=== PATIENT | male | born 1980 | race African-American/Black ===

== ENCOUNTER 2018-01-29 09:20 | Inpatient (IN) | payer BC ==
[2018-01-29] MEDS: SOD CHLORIDE 0.9% 1,000 ML IV (10:30)
[2018-01-29] MEDS: KETOROLAC 30 MG INJ IV (10:30)
[2018-01-29 11:09] LABS: ADD MAN DIFF? NO
[2018-01-29 11:12] LABS: BASOPHILS % 0.2 % (0.0-2.0); EOSINOPHILS % 0.3 % (0.0-7.0); HEMATOCRIT 36.1 % (42.0-52.0); HEMOGLOBIN 12.2 g/dl (14.0-18.0); LYMPHOCYTES # 1.4 10^3/ul (0.8-2.9); LYMPHOCYTES % 23.2 % (15.0-51.0); MEAN CORPUSCULAR HEMOGLOBIN 31.9 pg (29.0-33.0); MEAN CORPUSCULAR HGB CONC 33.8 g/dl (32.0-37.0); MEAN CORPUSCULAR VOLUME 94.3 fl (82.0-101.0); MEAN PLATELET VOLUME 11.4 fl (7.4-10.4); MONOCYTE # 0.5 10^3/ul (0.3-0.9); MONOCYTES % 8.9 % (0.0-11.0); NEUTROPHIL # 3.9 10^3/ul (1.6-7.5); NEUTROPHILS % 67.2 % (39.0-77.0); PLATELET COUNT 102 10^3/UL (140-415); POSITIVE DIFF @See below; RED BLOOD COUNT 3.83 10^6/ul (4.70-6.10); RED CELL DISTRIBUTION WIDTH 15.3 % (11.5-14.5)
[2018-01-29 11:12] LABS: WHITE BLOOD COUNT 5.8 10^3/ul (4.8-10.8)
[2018-01-29 11:20] LABS: ADD UMIC YES; UR AMORPHOUS CRYSTAL MODERATE /HPF (NONE SEEN); UR ASCORBIC ACID NEGATIVE (NEGATIVE); UR BILIRUBIN (Dip) 1+ mg/dL (NEGATIVE); UR BLOOD (Dip) NEGATIVE (NEGATIVE); UR CLARITY TURBID (CLEAR); UR COLOR AMBER (YELLOW); UR GLUCOSE (Dip) 1+ mg/dL (NEGATIVE); UR KETONES (Dip) 1+ mg/dL (NEGATIVE); UR LEUKOCYTE ESTERASE (Dip) NEGATIVE Leu/ul (NEGATIVE); UR MUCUS FEW /HPF (NONE SEEN); UR NITRITE (Dip) NEGATIVE (NEGATIVE); UR RBC 14 /HPF (0-5); UR SPECIFIC GRAVITY (Dip) 1.031 (1.003-1.030); UR TOTAL PROTEIN (Dip) 2+ mg/dl (NEGATIVE); UR UROBILINOGEN (Dip) 2+ mg/dL (NEGATIVE); UR WBC 0 /HPF (0-5)
[2018-01-29 11:47] LABS: ALANINE AMINOTRANSFERASE 37 IU/L (13-69); ALBUMIN 4.2 g/dl (3.3-4.9); ALBUMIN/GLOBULIN RATIO 0.82; ALKALINE PHOSPHATASE 115 IU/L (42-121); ANION GAP 22 (8-16); ASPARTATE AMINO TRANSFERASE 140 IU/L (15-46); BILIRUBIN,INDIRECT 2.7 mg/dl (0-1.1); BILIRUBIN,TOTAL 3.4 mg/dl (0.2-1.3); BLOOD UREA NITROGEN 2 mg/dl (7-20); CALCIUM 8.9 mg/dl (8.4-10.2); CARBON DIOXIDE 26 mmol/L (21-31); CHLORIDE 102 mmol/L (97-110); CREATININE 0.65 mg/dl (0.61-1.24); GLUCOSE 96 mg/dl (70-220); LIPASE 190 U/L (23-300); POTASSIUM 3.5 mmol/L (3.5-5.1); SODIUM 146 mmol/L (135-144); TOTAL PROTEIN 9.3 g/dl (6.1-8.1)
[2018-01-29] MEDS: IOHEXOL 300MG/ML 150 ML BTL (12:20)
[2018-01-29] MEDS: SOD CHLORIDE 0.9% 100 ML (12:20)
[2018-01-29 13:22] LABS: INR 1.57; PROTIME 19.1 Sec (11.9-14.9); PT RATIO 1.5
[2018-01-29] MEDS: morphine 4 MG/ML VIAL IV ×2 (13:36→15:49)
[2018-01-29 16:35] LABS: FLD CLARITY CLEAR; FLD COLOR YELLOW
[2018-01-29 16:35] LABS: FLD TYPE PARACENTHESIS
[2018-01-29 16:36] LABS: FLD RBC 1000 /uL; FLD WBC 110 /cmm
[2018-01-29 17:17] LABS: FLUID LD 326 U/L; FLUID TOTAL PROTEIN 3.7 g/dl
[2018-01-29] MEDS ORDERED: DOCUSATE SODIUM 100 MG CAP PO (18:00)
[2018-01-29] MEDS ORDERED: ONDANSETRON 4 MG INJ IV (18:00)
[2018-01-29] MEDS ORDERED: ACETAMINOPHEN 325 MG TAB PO (18:00)
[2018-01-29] MEDS ORDERED: NACL 0.9% 3 ML SYG IV (18:00)
[2018-01-29] MEDS: ALBUMIN HUMAN 25% 100 ML INJ IV (18:34)
[2018-01-29] MEDS: THIAMINE 100 MG TAB PO (18:34)
[2018-01-29 18:43] LABS: ALPHA FETOPROTEIN 3.69 IU/L (0.00-7.21)
[2018-01-29] MEDS: IBUPROFEN 600 MG TAB PO (22:33)
[2018-01-29] MEDS: HEPARIN 5,000 UNIT/0.5 ML VIAL SC (22:34)
[2018-01-29] MEDS: morphine 2 MG INJ IV (23:32)
[2018-01-30 00:23] LABS: CREATININE,URINE RANDOM > 605.40 mg/dl (20-370)
[2018-01-30] MEDS: morphine 2 MG INJ IV (04:08)
[2018-01-30 05:07] LABS: ADD MAN DIFF? NO
[2018-01-30 05:13] LABS: ABNORMAL IP MESSAGE 1; BASOPHILS % 0.2 % (0.0-2.0); EOSINOPHILS % 0.8 % (0.0-7.0); HEMATOCRIT 32.4 % (42.0-52.0); HEMOGLOBIN 10.6 g/dl (14.0-18.0); LYMPHOCYTES # 1.2 10^3/ul (0.8-2.9); LYMPHOCYTES % 24.7 % (15.0-51.0); MEAN CORPUSCULAR HEMOGLOBIN 31.2 pg (29.0-33.0); MEAN CORPUSCULAR HGB CONC 32.7 g/dl (32.0-37.0); MEAN CORPUSCULAR VOLUME 95.3 fl (82.0-101.0); MEAN PLATELET VOLUME 11.3 fl (7.4-10.4); MONOCYTE # 0.4 10^3/ul (0.3-0.9); MONOCYTES % 8.4 % (0.0-11.0); NEUTROPHIL # 3.2 10^3/ul (1.6-7.5); NEUTROPHILS % 65.5 % (39.0-77.0); PLATELET COUNT 68 10^3/UL (140-415); POSITIVE DIFF @See below; RED CELL DISTRIBUTION WIDTH 15.1 % (11.5-14.5)
[2018-01-30 05:13] LABS: WHITE BLOOD COUNT 4.9 10^3/ul (4.8-10.8)
[2018-01-30 05:37] LABS: ALANINE AMINOTRANSFERASE 37 IU/L (13-69); ALBUMIN 3.7 g/dl (3.3-4.9); ALBUMIN/GLOBULIN RATIO 0.82; ALKALINE PHOSPHATASE 104 IU/L (42-121); ANION GAP 15 (8-16); ASPARTATE AMINO TRANSFERASE 109 IU/L (15-46); BILIRUBIN,INDIRECT 2.3 mg/dl (0-1.1); BILIRUBIN,TOTAL 3.1 mg/dl (0.2-1.3); BLOOD UREA NITROGEN 3 mg/dl (7-20); CALCIUM 8.6 mg/dl (8.4-10.2); CARBON DIOXIDE 27 mmol/L (21-31); CHLORIDE 102 mmol/L (97-110); CREATININE 0.59 mg/dl (0.61-1.24); GLUCOSE 91 mg/dl (70-220); MAGNESIUM 1.5 mg/dl (1.7-2.5); PHOSPHORUS 3.4 mg/dl (2.5-4.9); SODIUM 141 mmol/L (135-144); TOTAL PROTEIN 8.2 g/dl (6.1-8.1)
[2018-01-30 06:01] LABS: HEPATITIS B SURFACE ANTIGEN NEGATIVE (NEGATIVE)
[2018-01-30 06:14] LABS: HIV 1&2 ANTIBODY NEGATIVE (NEGATIVE)
[2018-01-30 06:17] LABS: HEPATITIS B SURFACE ANTIBODY NEGATIVE (NEGATIVE)
[2018-01-30 06:19] LABS: HEPATITIS B CORE ANTIBODY NEGATIVE (NEGATIVE); HEPATITIS C VIRAL ANTIBODY NEGATIVE (NEGATIVE)
[2018-01-30] MEDS: THIAMINE 100 MG TAB PO (08:56)
[2018-01-30] MEDS: MULTIVITAMINS THERAPEUTIC TAB PO (08:56)
[2018-01-30] MEDS: FOLIC ACID 1 MG TAB PO (08:56)
[2018-01-30] MEDS: HEPARIN 5,000 UNIT/0.5 ML VIAL SC ×2 (08:57→20:36)
[2018-01-30] MEDS: POTASSIUM CHLORIDE (SR) 20 MEQ TAB PO (09:57)
[2018-01-30] MEDS: MAGNESIUM SULFATE 3 GM in DEXTROSE 5% 100 ML IVPB (12:09)
[2018-01-30] MEDS: SPIRONOLACTONE 25 MG TAB PO (14:55)
[2018-01-30] MEDS: FUROSEMIDE 40 MG TAB PO (14:56)
[2018-01-30 16:26] LABS: PATH REVIEW CH
[2018-01-31] MEDS: traZODone 50 MG TAB PO (01:00)
[2018-01-31] MEDS: morphine LIQ (10 MG/5 ML) CUP PO (07:05)
[2018-01-31] MEDS: SPIRONOLACTONE 25 MG TAB PO ×2 (09:07→11:03)
[2018-01-31] MEDS: THIAMINE 100 MG TAB PO (09:08)
[2018-01-31] MEDS: FOLIC ACID 1 MG TAB PO (09:08)
[2018-01-31] MEDS: FUROSEMIDE 40 MG TAB PO (09:08)
[2018-01-31] MEDS: MULTIVITAMINS THERAPEUTIC TAB PO (09:08)
[2018-01-31] MEDS: HEPARIN 5,000 UNIT/0.5 ML VIAL SC (09:17)
[2018-01-31 10:45] LABS: ALANINE AMINOTRANSFERASE 33 IU/L (13-69); ALBUMIN 3.2 g/dl (3.3-4.9); ALBUMIN/GLOBULIN RATIO 0.82; ALKALINE PHOSPHATASE 84 IU/L (42-121); ANION GAP 14 (8-16); ASPARTATE AMINO TRANSFERASE 108 IU/L (15-46); BILIRUBIN,INDIRECT 1.6 mg/dl (0-1.1); BILIRUBIN,TOTAL 2.2 mg/dl (0.2-1.3); BLOOD UREA NITROGEN 2 mg/dl (7-20); CALCIUM 8.5 mg/dl (8.4-10.2); CARBON DIOXIDE 29 mmol/L (21-31); CHLORIDE 103 mmol/L (97-110); CREATININE 0.58 mg/dl (0.61-1.24); GLUCOSE 114 mg/dl (70-220); POTASSIUM 3.2 mmol/L (3.5-5.1); SODIUM 143 mmol/L (135-144); TOTAL PROTEIN 7.1 g/dl (6.1-8.1)
[2018-01-31] MEDS: NADOLOL 40 MG TAB PO (11:05)
[2018-01-31] MEDS: POTASSIUM CHLORIDE (SR) 20 MEQ TAB PO (13:21)
[2018-02-01] MEDS ORDERED: SPIRONOLACTONE 25 MG TAB PO (09:00)
== END 2018-01-31 16:00 | disposition home or self-care (01) | DRG 948 ==
LOC: FTE 09:20 → MS1 17:54
PROVIDERS: Internal Medicine
PROC: 0W9G3ZZ Drainage of Peritoneal Cavity, Percutaneous Approach (ICD-10-PCS; principal; 2018-01-29)
DX: R18.8 Other ascites (principal); C22.0 Liver cell carcinoma; C79.9 Secondary malignant neoplasm of unspecified site; K76.6 Portal hypertension; Z85.71 Personal history of Hodgkin lymphoma; R16.0 Hepatomegaly, not elsewhere classified; K74.60 Unspecified cirrhosis of liver; R16.1 Splenomegaly, not elsewhere classified
CPT/HCPCS: 36415; 74177; 74183; 80053; 81001; 81003; 82042; 82105; 83615; 83690; 83735; 84100; 84155; 84157; 85025; 85610; 86703; 86704; 86706; 86708; 86709; 86803; 87070; 87102; 87116; 87340; 88104; 88305; 89051; 93306; 96374; 96375; 96376; 99285-25

== ENCOUNTER 2018-06-26 08:19 | Emergency (ER) | payer BC ==
[2018-06-26] MEDS: ONDANSETRON 4 MG INJ IV (09:21)
[2018-06-26] MEDS: KETOROLAC 15 MG INJ IV (09:21)
[2018-06-26] MEDS: SOD CHLORIDE 0.9% 500 ML IV (09:22)
[2018-06-26 09:30] LABS: ADD MAN DIFF? NO
[2018-06-26 09:46] LABS: WHITE BLOOD COUNT 6.9 10^3/ul (4.8-10.8)
[2018-06-26 09:46] LABS: BASOPHILS % 0.1 % (0.0-2.0); EOSINOPHILS % 0.3 % (0.0-7.0); HEMATOCRIT 37.2 % (42.0-52.0); HEMOGLOBIN 11.7 g/dl (14.0-18.0); LYMPHOCYTES # 0.8 10^3/ul (0.8-2.9); LYMPHOCYTES % 11.4 % (15.0-51.0); MEAN CORPUSCULAR HEMOGLOBIN 29.3 pg (29.0-33.0); MEAN CORPUSCULAR HGB CONC 31.5 g/dl (32.0-37.0); MEAN PLATELET VOLUME 11.1 fl (7.4-10.4); MONOCYTE # 0.4 10^3/ul (0.3-0.9); MONOCYTES % 5.5 % (0.0-11.0); NEUTROPHIL # 5.6 10^3/ul (1.6-7.5); NEUTROPHILS % 82.4 % (39.0-77.0); PLATELET COUNT 156 10^3/UL (140-415)
[2018-06-26 09:54] LABS: INR 1.49; PROTIME 18.3 Sec (11.9-14.9); PT RATIO 1.4
[2018-06-26 09:56] LABS: PARTIAL THROMBOPLASTIN TIME 31.5 Sec (25.0-35.0)
[2018-06-26] MEDS: LIDOCAINE 1% (MPF) 5 ML VIAL (10:23)
[2018-06-26 11:01] LABS: ANION GAP 17 (8-16); BLOOD UREA NITROGEN 3 mg/dl (7-20); CARBON DIOXIDE 28 mmol/L (21-31); CHLORIDE 105 mmol/L (97-110); CREATININE 0.78 mg/dl (0.61-1.24); GLUCOSE 132 mg/dl (70-220); POTASSIUM 4.1 mmol/L (3.5-5.1); SODIUM 146 mmol/L (135-144)
[2018-06-26 11:03] LABS: AMMONIA 15 umol/l (9-30)
[2018-06-26 11:10] LABS: ALANINE AMINOTRANSFERASE 22 IU/L (13-69); ALBUMIN 3.7 g/dl (3.3-4.9); ALBUMIN/GLOBULIN RATIO 0.78; ALKALINE PHOSPHATASE 133 IU/L (42-121); ASPARTATE AMINO TRANSFERASE 91 IU/L (15-46); BILIRUBIN,INDIRECT 1.6 mg/dl (0-1.1); BILIRUBIN,TOTAL 1.6 mg/dl (0.2-1.3); CALCIUM 8.1 mg/dl (8.4-10.2); LIPASE 29 U/L (23-300); TOTAL PROTEIN 8.4 g/dl (6.1-8.1)
[2018-06-26 11:13] LABS: B-TYPE NATRIURETIC PEPTIDE 14 PG/ML (0-125)
[2018-06-26 11:13] LABS: TROPONIN-I < 0.012 ng/ml (0.000-0.120)
== END 2018-06-26 14:30 | disposition home or self-care (01) ==
LOC: E/R 08:19
DX: K70.31 Alcoholic cirrhosis of liver with ascites (principal); K43.9 Ventral hernia without obstruction or gangrene
CPT/HCPCS: 36415; 80053; 82140; 83690; 83880; 84484; 85025; 85610; 85730; 93005; 96374; 96375; 99285-25